=== PATIENT | female | born 1955 | race African-American/Black ===

== ENCOUNTER 2024-08-24 11:27 | Observation (INO) | payer OTHER, SELFPAY ==
[2024-08-24] VITALS (13 sets, daily range): BP systolic 99–134; BP diastolic 39–85; PULSE 63–85; BMI 28.7; BMI 28.3
[2024-08-24 06:14] LABS: Glucose - Point of Care 123 mg/dl (70-99)
[2024-08-24 06:32] LABS: % Basophils 0.6 % (0-2); % Eosinophils 1.5 % (0-6); % Immature Granulocytes 0.3 % (0-0.5); % Lymphocytes 48.2 % (20.5-51.1); % Monocytes 7.6 % (1.7-9.3); % Neutrophils 41.8 % (42.2-75.2); Absolute Basophils 0.1 10^3/uL (0-0.2); Absolute Eosinophils 0.1 10^3/uL (0-0.7); Absolute Lymphocytes 4.6 10^3/uL (1.2-3.4); Absolute Monocytes 0.7 10^3/uL (0.1-0.6); Hematocrit 45.2 % (37.0-47.0); Hemoglobin 14.5 g/dL (12.0-16.0); Mean Corp Hgb Conc. 32.1 g/dL (33.0-37.0); Mean Corpuscular Hgb 27.8 pg (27.0-31.0); Mean Corpuscular Volume 86.6 fL (81.0-99.0); Mean Platelet Volume 11.5 fL (7.4-10.4); Nucleated Red Blood Cells % 0 %; Platelet Count 208 10^3/uL (130-400); Red Blood Cell Count 5.22 10^6/uL (4.20-5.40); Red Cell Dist. Width 14.6 % (11.5-14.5); White Blood Cell Count 9.5 10^3/uL (4.8-10.8)
--- NOTE | 2024-08-24 06:51 | ED.GENMED ---
History of Present Illness
General
Chief Complaint: Change in Mental Status
Source: patient and family (Son)
Time Seen by Provider: 08/24/24 06:04
History of Present Illness
History of Present Illness:
69-year-old female woke up at baseline this morning. Shortly after she became dizzy. Feeling like her equilibrium was off. Throbbing posterior headache started near ER arrival. Symptoms have been going on for over an hour. Patient was able to
ambulate at the store but the son felt that her ambulation had gotten worse and was brought in by wheelchair. Posterior headache is dull mild in nature. No nausea. Patient denies other neurologic symptoms denying visual issues speech issues focal
weakness etc.
Past History
Past History
ED Past Medical History: Hypercholesterolemia
ED Past Surgical History: Gynecological
Review of Systems
Review of Systems
All Other Systems: Not applicable
Constitutional: Denies fever or chills
Respiratory: Reports no symptoms
Cardiac: Reports no symptoms
Phy Exam
Physical Exam
Physical Exam:
GENERAL: Alert and oriented in no apparent distress
EYE: Orbits normal.
NECK: Supple, no carotid bruit
ENT: Pharynx without erythema
CARDIAC: Regular rate and rhythm without any obvious murmurs.
LUNGS: Clear breath sounds,normal
ABDOMEN: Soft, without focal tenderness or distention
NEUROLOGICAL: Alert and oriented , speech normal. Extraocular muscles intact. No nystagmus. [id number] normal. No drift. Lower extremity strength intact. Light touch intact. Eye confrontation normal.
SKIN: Warm and dry, no rash or lesion, no discoloration, skin intact.
MUSCULOSKELETAL: No edema,no deformity.Good color
PSYCH: Normal and appropriate interaction.
Course
Orders/Labs/Results
Orders:
Orders
08/24/24 05:[address] [CT Head W/o Iv Contrast] Urgent
Comment:
Reason For Exam: CHANGE IN MENTAL STATUS
08/24/24 06:06
Electrocardiogram (*1) Urgent
Reason for Study: Fatigue / Weakness
EKG- Treatment ONCE
08/24/24 06:15
Bedside Glucose- Treatment ONCE
08/24/24 06:17
CMP [Comprehensive Metabolic Panel] Urgent
Complete Blood Count/With Diff Urgent
08/24/24 06:20
CT Head & Neck Angio W/wo IV Urgent
Comment:
Reason For Exam: Disequilibrium/posterior headache
Cardiac Monitoring- Treatment ONCE
Pulse Ox/cont/shift [RESP] Stat
Quantity: 1
08/24/24 08:31
Aspirin Chewable [Low Strength Aspirin] 324 mg PO NOW STA
08/24/24 10:44
0.9% Sodium Chloride 1000 ml [Nss] 1,000 ml IV BOLUS
Abnormal Lab Results
08/24/24 08/24/24
06:13 06:17
MCHC 32.1 L g/dL
(33.0-37.0)
RDW 14.6 H %
(11.5-14.5)
MPV 11.5 H fL
(7.4-10.4)
Absolute Lymphs (auto) 4.6 H 10^3/uL
(1.2-3.4)
Absolute Monos (auto) 0.7 H 10^3/uL
(0.1-0.6)
Neutrophils % 41.8 L %
(42.2-75.2)
Carbon Dioxide 21 L mmol/L
(22-30)
Glucose 129 H mg/dl
(70-99)
POC Glucose 123 H mg/dl
(70-99)
08/24/24 06:17
08/24/24 06:17
Vital Signs
Initial and Last Documented VS:
Initial Vital Signs
Temp Pulse Resp BP Pulse Ox
98.1 F 84 22 133/84 97
08/24/24 05:49 08/24/24 05:49 08/24/24 05:49 08/24/24 05:49 08/24/24 05:49
Last Documented Vital Signs
Temp Pulse Resp BP Pulse Ox
98.1 F 64 15 99/39 97
08/24/24 05:49 08/24/24 10:00 08/24/24 10:00 08/24/24 10:00 08/24/24 05:49
MDM/Problems Addressed
Differential Diagnosis Includes:
Patient medically stable and nontoxic. Nonfocal neurologic exam. Fully awake and alert although answer some questions slightly slowly. May be off slightly cognitively. Relatively suspicious of a posterior circulation issue with disequilibrium
and posterior headache. Will get CT angiography. Warrants inpatient further workup.
*Radiology
Radiology exam reviewed: radiology read reviewed (Negative head CT. Microvascular changes) and other (68% narrowing left carotid bulb)
*Pulse Oximetry
Patient hypoxic: no
*EKG
Interpreted by ED Provider?: Yes
Interpretation: normal
Comparison EKG: changes noted
Heart Rate: 77
Rate: normal
Rhythm: sinus
[place]: normal axis
Interval: normal interval
QRS Pattern: normal QRS
Ischemia: no ischemia
*[employer]or Interpretation
Rate: normal
Interpretation: normal
Heart Rate: 74
Rhythm: sinus
*Critical Care Note
Total Time (30-74mins, 75-104mins- exclusive of procedures): Not Applicable
Update Note
Update Note:
Will admit to medicine. Neurology aware. Will start aspirin.
ED Attending Note
-
Portions of this chart may have been created with voice recognition software.� Occasional wrong word or��sound alike� substitutions may have occurred due to the inherent limitations of voice recognition software.
Discharge Plan
Departure
Patient Disposition: Admit
Date of Disposition: 08/24/24
Time of Disposition: 08:30
Presentation/result/management discussed w/ accepting MD/DO: Neurology
Discharge Problem:
Acute disequilibrium/headache, Possible CVA
Prescriptions:
No Action
atorvastatin 20 mg tablet
20 mg PO HS
Memory Frankie Tablet
1 tab PO DAILY
Referrals:
UNKNOWN - PT DOES,NOT KNOW [Family Provider] -
Interventions
Interventions:
*Risk Screen - Suicide Last Done: 08/24/24 05:49
*General Assessment Last Done: 08/24/24 06:13
*Neglect/Abuse Screening Last Done: 08/24/24 05:49
*ED- Fall Risk Assessment Last Done: 08/24/24 06:08
*ED COVID-19 Vaccine History Last Done: 08/24/24 06:07
ED- Pulmonary Assessment Last Done: 08/24/24 07:00
ED- Neurological Assessment Last Done: 08/24/24 07:00
ED- Cardiac Assessment Last Done: 08/24/24 07:00
ED Swallowing Screen Last Done: 08/24/24 08:30
Discharge Date and Time
Print Language: GREEK
[2024-08-24 07:02] LABS: ALT (SGPT) 25 U/L (0-35); AST (SGOT) 31 U/L (14-36); Albumin 4.5 g/dl (3.5-5.0); Alkaline Phosphatase 108 U/L (38-126); Blood Urea Nitrogen 13 mg/dl (7-17); Calcium 9.8 mg/dl (8.4-10.2); Carbon Dioxide 21 mmol/L (22-30); Chloride 107 mmol/L (98-107); Estimated Creatinine Clearance 74 ml/min; Glucose 129 mg/dl (70-99); Sodium 140 mmol/L (135-145); Total Bilirubin 0.5 mg/dl (0.2-1.3); Total Protein 7.7 g/dl (6.3-8.2); eGFR > 60.00
[2024-08-24] MEDS: LOW STRENGTH ASPIRIN 324 MG PO (08:38)
--- NOTE | 2024-08-24 10:44 | HPS.HSE ---
Family Physician
-
Family Physician: NOT KNOW UNKNOWN - PT DOES
Chief Complaint
-
weakness,dizziness
History of Present Illness
69-year-old female past medical history of hyperlipidemia who is presenting from home with complaints of dizziness and not feeling well. Patient woke up this morning and was her normal self at baseline. Patient did states she was feeling off.
Patient went to the grocery store with her son and stated that she felt too weak. Son also noticed that patient was not walking appropriately. Patient also started feeling dizzy. Patient also complained of headache once she was in the ER.
Patient states that headache has mildly improved. Patient denies any nausea or vomiting. Denies any vision problems. Denies any neck pain. Denies any abdominal pain, chest pain, shortness of breath. Denies any lower extremity upper extremity
weakness. Denies any numbing or tingling. Patient is currently sleeping. Does opens her eyes and answers question. Son does states of some memory issues at times. Son does state that patient doing increasing amount of about 50 to 60 ounce of
coffee every day and not much water intake. Patient continues to work in a factory. Under normal amount of stress. No recent illness. Patient was evaluated in the ER by neurology and underwent CT head and CT angiogram. Son did state that
patient felt dizzy upon standing up. Smokes 4 to 5 cigarettes daily. Son assisted with interview and denies that patient drinks alcohol on daily basis.
Medical History
Past Medical History
Past Medical History: Reports Other
Additional Past Medical History:
Tobacco abuse
Hyperlipidemia
Past Surgical History: Reports None
Social History
Tobacco: Smoker (1/2 PPD for 30 plus years)
Alcohol: None
Living: With Family
Employment: Employed
Family History
Family History: Not pertinent
Allergies / Home Medications
Allergies reflects when Allergies were last updated in [facility].
Home Medications with original date entered in [facility]
Allergy/Medication List:
Allergies
Allergy/AdvReac Type Severity Reaction Status Date / Time
No Known Allergies Allergy Verified 08/24/24 05:53
Home Medications
atorvastatin 20 mg tablet 20 mg PO HS High Cholesterol 05/08/23
amino acids 1 tab PO DAILY 08/24/24
Review of Systems
-
History Source: Family
A 12 point ROS was completed and negative except as noted: Yes
Physical Exam
Vital Signs
Vital Signs
Temp Pulse Resp BP Pulse Ox
98.1 F 64 15 99/39 97
08/24/24 05:49 08/24/24 10:00 08/24/24 10:00 08/24/24 10:00 08/24/24 05:49
Physical Exam
General: Well Developed, Well Nourished and No Apparent Distress
HEENT: NormoCephalic, Moist mucous membranes and Atraumatic
Respiratory: Clear
Cardiac: S1/S2 and Regular Rhythm; No Murmur or Rub
GI: Soft, Non Tender, Non Distended and Normal Bowel Sounds; No Organomegaly
Rectal: Deferred by Provider
Musculoskeletal: No Clubbing, No Cyanosis and No Edema
Skin: No Rash
Neuro: Alert, Oriented, No Motor Deficits, Nonfocal/grossly intact, No Sensory Deficits and Other (somnolence. Does open eyes and answers questions); No Slurred Speech, Facial Droop or Tremors
Psych: Calm
Laboratory Results
-
08/24/24 06:17
08/24/24 06:17
Laboratory Results
Total Bilirubin 0.5 mg/dl (0.2-1.3) 08/24/24 06:17
AST 31 U/L (14-36) 08/24/24 06:17
ALT 25 U/L (0-35) 08/24/24 06:17
Alkaline Phosphatase 108 U/L (38-126) 08/24/24 06:17
Data Reviewed
-
CT Scan: Report Reviewed by me, Discussed with Patient and Discussed with Family
Lab Data: Labs Reviewed by me, Discussed with Patient and Discussed with Family
Impression/Plan
-
#Toxic metabolic encephalopathy/somnolence
#Dizziness
#Disequilibrium
Likely secondary to severe dehydration versus TIA rule out CVA versus low likelihood of seizures
CT head was negative for acute pathology-There is no evidence of intracranial mass lesion or mass effect with no midline shift. There is no evidence for acute intracranial hemorrhage. Ventricles and subarachnoid cisterns appear within normal limits.
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
CTA head and neck imaging with left carotid stenosis of 68% per report. Can follow-up with a yearly ultrasound with vascular surgery as outpatient
MRI of the brain with and without contrast ordered
Will defer EEG to neurology
Neurological checks
Check UDS, acetaminophen and salicylate levels
Start patient on aggressive IV fluid resuscitation
Check orthostatics
Check TSH
Check UA urinalysis with reflex to culture
Physical and Occupational Therapy evaluation once patient more awake
Neurology recs
Hyperlipidemia
Continue with statin
Tobacco abuse counseled on cessation. Offer nicotine patch once patient more awake
DVT prophylaxis with Lovenox
Full code
Discussed with patient son at bedside in detail
I spent a total of 80 minutes with the patient or on the floor. More than 50% of this time involved counseling and coordination of care.
--- NOTE | 2024-08-24 10:51 | CON.NEURO ---
Neuro Assessment/Plan
Assessment
presented to ED with initial complaints of dysequilibrium though to me sounded more like orthostatic dizziness
no evidence to suggest stroke as the cause of her symptoms,
I reviewed CTA head/neck imaging with patient and her son showing left carotid stenosis, 68% per report. I do not believe this is symptomatic carotid.
with asymptomatic carotid 50-70% no intervention is needed; consider yearly follow up by ultrasound.
also don't have a good explanation for her somnolence.
Plan
check brain MRI
orthostatic vital signs
Consultation
Order
Date of Consultation: 08/24/24
Requesting Provider: Patrick Sung
Reason for Consult: Dysequilibrium
Subjective/Objective
Subjective Data
Date of Service: August 24, 2024
From ED notes:
69-year-old female woke up at baseline this morning. Shortly after she became dizzy. Feeling like her equilibrium was off. Throbbing posterior headache started near ER arrival. Symptoms have been going on for over an hour. Patient was able to
ambulate at the store but the son felt that her ambulation had gotten worse and was brought in by wheelchair. Posterior headache is dull mild in nature. No nausea. Patient denies other neurologic symptoms denying visual issues speech issues focal
weakness etc.
Seen at bedside with her son. to me, she reports dizziness like she is about to pass out. symptoms worse when standing up. no change with head movement. denies vertigo, spinning, or sense of motion while at rest. no tinnitus, hearing change, vision
loss, diplopia, focal weakness, or numbness. no nausea/vomiting. During the evaluation patient fell asleep on me multiple times but easily awakens to loud voice. Her son reports she is cognitively slower than usual.
Objective Data
Vital Signs
Temp Pulse Resp BP Pulse Ox
36.7 C 64 15 99/39 97
08/24/24 05:49 08/24/24 10:00 08/24/24 10:00 08/24/24 10:00 08/24/24 05:49
Lab Results
08/24/24 06:17
08/24/24 06:17
Sodium 140 mmol/L (135-145) 08/24/24 06:17
Potassium 4.0 mmol/L (3.5-5.1) 08/24/24 06:17
BUN 13 mg/dl (7-17) 08/24/24 06:17
Glucose 129 mg/dl (70-99) H 08/24/24 06:17
Calcium 9.8 mg/dl (8.4-10.2) 08/24/24 06:17
Patient Allergies
No Known Allergies Allergy (Verified 08/24/24 05:53)
Physical Exam
-
somnolent
VFF, EOMI, face symmetric
full strength b/l UE/LE normal bulk/tone
sensation intact to touch/temp, moderate vib loss in both ankles
DTR 1+ symmetric
Medications
-
Active Medications
Generic Name Dose Route Start Last Admin
Trade Name Freq PRN Reason Stop Dose Admin
Sodium Chloride 1,000 mls @ 1,000 mls/hr 08/24/24 10:44
Nss IV 08/24/24 11:43
BOLUS ONE
Home Medications
�Medication �Instructions �Recorded
atorvastatin 20 mg tablet 20 mg PO HS High Cholesterol 05/08/23
amino acids 1 tab PO DAILY 08/24/24
[2024-08-24] MEDS: NSS 1000 IV (11:00)
[2024-08-24] MEDS: LR 1000 IV (12:45)
[2024-08-24 13:13] LABS: Creatine Phosphokinase 994 U/L (30-135); Salicylate < 1.0 mg/dl (2.0-20.0)
[2024-08-24 13:16] LABS: Alcohol None Detected
--- NOTE | 2024-08-24 13:21 | PTCARENOTE ---
pt presents from ED via stretcher. pt is AAO*3, Vss, room air. pt denies any pain at this time. pt in and out of sleep but easily arousable. pt is oriented to the room. call diane within the reach. plan of care ongoing.
[2024-08-24 16:59] LABS: Urine Albumin Negative (Neg - Trace); Urine Bilirubin Negative (Negative); Urine Character Clear (Clear); Urine Color Yellow; Urine Glucose Negative (Negative); Urine Ketone Negative (Negative); Urine Leukocyte 2+ (Negative); Urine Nitrite Negative (Negative); Urine Occult Blood Negative (Negative); Urine Specific Gravity 1.015 (<1.030); Urine Urobilinogen Negative (Neg - 1+)
[2024-08-24 17:09] LABS: Urine Bacteria Few (Negative); Urine Red Blood Cell 0-2 /HPF (0-2); Urine Squamous Cell 16-20 /LPF (Few)
[2024-08-24] MEDS: LOVENOX 40 MG SC (17:38)
[2024-08-24] MEDS: LIPITOR 20 MG PO (20:57)
[2024-08-24] MEDS: SENOKOT-S 1 TABLET PO (20:58)
[2024-08-24 21:07] LABS: Amphetamines Negative (Negative); Barbiturates Negative (Negative); Benzodiazepines Negative (Negative); Buprenorphine Negative (Negative); Cocaine Negative (Negative); Marijuana Positive (Negative); Methadone Negative (Negative); Methamphetamines Negative (Negative); Opiates Negative (Negative); Phencyclidine Negative (Negative); Tricyclic Antidepressants Negative (Negative)
[2024-08-25] MEDS: LR 1000 IV (00:28)
[2024-08-25] MEDS: TYLENOL 650 MG PO (03:27)
[2024-08-25 07:15] VITALS: BP 133/78
[2024-08-25 07:54] LABS: ALT (SGPT) 19 U/L (0-35); AST (SGOT) 23 U/L (14-36); Albumin 3.7 g/dl (3.5-5.0); Alkaline Phosphatase 87 U/L (38-126); Blood Urea Nitrogen 12 mg/dl (7-17); Calcium 9.4 mg/dl (8.4-10.2); Carbon Dioxide 21 mmol/L (22-30); Chloride 109 mmol/L (98-107); Estimated Creatinine Clearance 83 ml/min; Glucose 99 mg/dl (70-99); Magnesium 1.9 mg/dl (1.6-2.3); Potassium 4.6 mmol/L (3.5-5.1); Sodium 137 mmol/L (135-145); Total Bilirubin 0.6 mg/dl (0.2-1.3); Total Protein 6.1 g/dl (6.3-8.2); eGFR > 60.00
[2024-08-25 07:55] LABS: % Basophils 0.6 % (0-2); % Eosinophils 1.9 % (0-6); % Immature Granulocytes 0.4 % (0-0.5); % Monocytes 6.5 % (1.7-9.3); % Neutrophils 51.6 % (42.2-75.2); Absolute Eosinophils 0.1 10^3/uL (0-0.7); Absolute Lymphocytes 2.1 10^3/uL (1.2-3.4); Absolute Monocytes 0.4 10^3/uL (0.1-0.6); Absolute Neutrophils 2.8 10^3/uL (1.4-6.5); Hematocrit 37.9 % (37.0-47.0); Hemoglobin 12.5 g/dL (12.0-16.0); Mean Corpuscular Hgb 27.8 pg (27.0-31.0); Mean Corpuscular Volume 84.2 fL (81.0-99.0); Nucleated Red Blood Cells % 0 %; Red Cell Dist. Width 14.6 % (11.5-14.5); White Blood Cell Count 5.4 10^3/uL (4.8-10.8)
[2024-08-25 08:10] LABS: TSH Reflex To Free T4 0.79 uIU/ml (0.47-4.68)
[2024-08-25 08:30] LABS: Vitamin B12 334 pg/ml (239-931)
[2024-08-25 08:53] LABS: Mean Platelet Volume 11.1 fL (7.4-10.4); Platelet Count 165 10^3/uL (130-400)
[2024-08-25 09:04] LABS: Creatine Phosphokinase 764 U/L (30-135)
[2024-08-25] MEDS: VITAMIN B-12 1000 MCG PO (09:44)
--- NOTE | 2024-08-25 10:01 | W.PN.HOSP.TC ---
Today's Communication/Plan
-
dc home
Assessment / Plan
Assessment / Plan
#Toxic metabolic encephalopathy/somnolence
#Dizziness
#Disequilibrium
Likely secondary to marijuana related side effects.
All resolved.
CT head was negative for acute pathology-There is no evidence of intracranial mass lesion or mass effect with no midline shift. There is no evidence for acute intracranial hemorrhage. Ventricles and subarachnoid cisterns appear within normal limits.
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
CTA head and neck imaging with left carotid stenosis of 68% per report. Can follow-up with a yearly ultrasound with vascular surgery as outpatient
MRI brain was negative for acute stroke.
Mild elevation in CK status post aggressive IV fluid resuscitation.
Urine drug screen was positive for marijuana
Patient did admit to eating marijuana induced cookie yesterday morning.
Patient is ambulating without difficulty.
Recommended complete tobacco cessation. Patient verbalized understanding.
Recommend to follow-up with vascular surgery for carotid stenosis.
Patient is back to baseline normal mental status. Awake, alert and oriented.
Hyperlipidemia
Continue with statin
Tobacco abuse counseled on cessation. Counseled on complete tobacco cessation for greater than 10 minutes.
DVT prophylaxis with Lovenox
Full code
Discussed with RN
DC homeMore than 30 minutes spent in discharge including
Final examination of the patient
Summarizing hospital stay
Instructions for continuing care to all relevant caregivers
Preparation of discharge records, prescriptions, and referral forms
Total time spent (in minutes): 52
Anticipated Discharge: Today
Subjective/Interval History
-
Date of Service: August 25, 2024
Patient is awake, alert and oriented
Patient answering all questions
Patient tolerated breakfast
Denies any lightheadedness, dizziness, chest pain or shortness of breath.
Patient stated she ate marijuana induced cookie yesterday morning.
Objective Data
-
Labs:
Laboratory Results
08/25/24
06:22
WBC 5.4
Hgb 12.5
Hct 37.9
Plt Count 165 D
Sodium 137
Potassium 4.6
Chloride 109 H
Carbon Dioxide 21 L
BUN 12
Creatinine 0.7
Glucose 99
Calcium 9.4
Total Bilirubin 0.6
AST 23
ALT 19
Alkaline Phosphatase 87
Vital Signs:
Vital Signs
Temp Pulse Resp BP Pulse Ox
98.0 F 62 20 133/78 96
08/25/24 07:15 08/25/24 07:15 08/25/24 07:15 08/25/24 07:15 08/25/24 07:15
I&O
08/24/24 08/25/24 08/26/24
06:59 06:59 06:59
Intake Total 2220 / 2220
Output Total 300 / 300
Balance 192 / 192
Physical Exam
-
General: Well Developed, Well Nourished, No Apparent Distress and Obese
HEENT: Normocephalic, Atraumatic and Moist Mucous Membranes
Respiratory: Clear to Auscultation
Cardiac: Regular Rhythm and S1/S2; Negative Murmur, Rub or Gallop
GI: Soft, Nontender, Nondistended and Normal Bowel Sounds; Negative Organomegaly
Rectal: Deferred by Provider
Musculoskeletal: No Clubbing, No Cyanosis and No Edema
Skin: Negative Rash
Neuro: Awake, Alert, Oriented, AO x 3, No Motor Deficits, Nonfocal/Grossly Intact and No Sensory Deficits; Negative Tremors, Sedated, Slurred Speech or Facial Droop
Psych: Calm
--- NOTE | 2024-08-25 10:06 | W.DCSUMMARY ---
Discharge Summary
Discharge Data
Date of Admission: 08/24/24
Date of Discharge: 08/25/24
-
Pending Results: No
Hospital Course
69-year-old female past medical history of history of hyperlipidemia, tobacco abuse presenting complaints of dizziness, disequilibrium. Patient was brought into the ER by patient's son. Patient woke up yesterday morning and complained of
dizziness. Patient went to convenient store with patient's son and son noticed patient was not walking appropriately. Patient was complaining of headache in the ER. CT head was negative for acute pathology-There is no evidence of intracranial mass
lesion or mass effect with no midline shift. There is no evidence for acute intracranial hemorrhage. Ventricles and subarachnoid cisterns appear within normal limits. 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 CTA head and neck
imaging with left carotid stenosis of 68% per report. Can follow-up with a yearly ultrasound with vascular surgery as outpatient. MRI brain was negative for acute stroke. Mild elevation in CK status post aggressive IV fluid resuscitation. Urine
drug screen was positive for marijuana. Patient did admit to eating marijuana induced cookie on day of admission. Patient symptomology was consistent with marijuana induced side effects. Patient was back to baseline mentation. Patient was
ambulating without difficulty. Also incidental finding of left-sided carotid stenosis recommend outpatient follow-up with vascular surgery. Recommended against complete tobacco cessation. All patient questions were answered she was discharged
home.
Discharge Plan
-
Patient Disposition: Home (Routine Discharge)
Discharge Diagnosis/Procedures: Toxic metabolic encephalopathy, dizziness and disequilibrium likely secondary to marijuana side effects
Vitamin B12 deficiency
Condition: Fair
Diet: Low Cholesterol
Activity: As tolerated
Driving Restrictions: No driving for 24 hours
Activity Restrictions/Additional Instructions:
Follow-up urine culture results with primary doctor.
Referrals:
Vahe Carey MD [Active] - None (Make appointment to follow-up for left carotid stenosis, 68% . )
UNKNOWN - PT DOES,NOT KNOW [Family Provider] - in less than 1 week
Prescriptions:
New
cyanocobalamin (vitamin B-12) [Vitamin B-12] 1,000 mcg Tablet
1,000 mcg PO DAILY Qty: 30 0RF
Continued
atorvastatin 20 mg tablet
20 mg PO HS
amino acids Tablet
1 tab PO DAILY
Discharge Orders:
Discharge Patient (As Directed); Ordered 08/25/24
Ordered By: Aly Medina
Discharge Date and Time
Discharge Date/Time: 08/25/24 12:20
Print Language: BENGALI
--- NOTE | 2024-08-25 10:57 | CM ---
Patient will d/c today. Patient seen bedside, initial assessment completed. Patient is a 69-year-old female past medical history of hyperlipidemia who is presenting from home with complaints of dizziness and not feeling well.
Patient reports that she lives w/ her daughter and son-in-law in a 2nd alr apartment- no elevators. Patient is independent w/ ambulating and ADLs, no DME identified. No SNF/VN/PT hx. No current OP or home services at this time.
Address, point of contact and insurance verified
PCP: Patrick Multani
Pharmacy: [facility]
Patient is currently admitted as OBS, OOBS form reviewed, copy provided, copy placed in chart
Patient agreeable to d/c, son will transport home
Plan: Home; no needs
[2024-08-25 11:15] VITALS: BP 129/74
[2024-08-25 18:26] LABS: Hepatitis C Antibody Negative (Negative)
== END 2024-08-25 12:20 | disposition home or self-care (01) ==
LOC: 4 EAST ACU 11:27
PROVIDERS: ADMITTING PHYSICIAN Hospitalist; CONSULT PHYSICIAN Psychiatry & Neurology Clinical Neurophysiology; EMERGENCY PHYSICIAN Emergency Medicine
DX: G92.8 Other toxic encephalopathy (principal); R51.9 Headache, unspecified; R42 Dizziness and giddiness; E78.00 Pure hypercholesterolemia, unspecified; R53.1 Weakness; R79.89 Other specified abnormal findings of blood chemistry; I65.22 Occlusion and stenosis of left carotid artery; F17.210 Nicotine dependence, cigarettes, uncomplicated; R40.0 Somnolence; Q28.3 Other malformations of cerebral vessels; R94.31 Abnormal electrocardiogram [ECG] [EKG]; M50.31 Other cervical disc degeneration, high cervical region; M48.02 Spinal stenosis, cervical region; M50.321 Other cervical disc degeneration at C4-C5 level; I67.81 Acute cerebrovascular insufficiency; J34.1 Cyst and mucocele of nose and nasal sinus
CPT/HCPCS: 70450; 70496; 70498; 70553; 80053; 80179; 80306; 81003; 81015; 82077; 82550; 82607; 82962; 83735; 84443; 85025; 86803; 87086; 93005; 94760; 96360; 99285; A9575; Q9967

== ENCOUNTER → 2025-03-27 06:32 | Outpatient (REF) | payer OTHER, SELFPAY | LOC: RAD 06:32 | PROVIDERS: ATTENDING PHYSICIAN Surgery Vascular Surgery; FAMILY PHYSICIAN Family Medicine | DX: Z13.6 Encounter for screening for cardiovascular disorders (principal); I65.22 Occlusion and stenosis of left carotid artery | CPT/HCPCS: 76770; 93880 ==